=== PATIENT | female | born 1945 | race Caucasian/White ===

== ENCOUNTER → 2017-11-23 | Outpatient (RCR) | payer MEDICARE | LOC: PT 11-11 12:47 | PROVIDERS: ATTEND Specialist | DX: S42.232D 3-part fracture of surgical neck of left humerus, subsequent encounter for fracture with routine healing (principal); M25.512 Pain in left shoulder; M25.612 Stiffness of left shoulder, not elsewhere classified; M62.81 Muscle weakness (generalized) | CPT/HCPCS: 97010 ×3; 97110 ×6; 97140 ×3; 97161; G8984; G8985 ==

== ENCOUNTER 2017-12-22 08:50 | Outpatient (RCR) | payer MEDICARE | END 2017-12-24 | LOC: PT 08:50 | PROVIDERS: ATTEND Specialist | DX: S42.232D 3-part fracture of surgical neck of left humerus, subsequent encounter for fracture with routine healing (principal); M25.512 Pain in left shoulder; M25.612 Stiffness of left shoulder, not elsewhere classified; M62.81 Muscle weakness (generalized) | CPT/HCPCS: 97010 ×5; 97110 ×11; 97140 ×4; G8984; G8985 ==

== ENCOUNTER 2018-01-11 08:57 | Outpatient (RCR) | payer MEDICARE | END 2018-01-23 | LOC: PT 08:57 | PROVIDERS: ATTEND Specialist | DX: S42.232D 3-part fracture of surgical neck of left humerus, subsequent encounter for fracture with routine healing (principal); M25.512 Pain in left shoulder; M25.612 Stiffness of left shoulder, not elsewhere classified; M62.81 Muscle weakness (generalized) | CPT/HCPCS: 97110 ×7; 97139 ×2; 97140 ×3; G8984; G8985 ==